=== PATIENT | male | born 1985 | race Caucasian/White ===

== ENCOUNTER 2022-08-24 07:52 | Emergency (ER) | payer BC ==
[2022-08-24] MEDS ORDERED: Ibuprofen 400 MG Tab PO ONE (08:31)
[2022-08-24] MEDS ORDERED: Acetaminophen 325 MG Tab PO ONE (08:31)
== END 2022-08-24 10:07 | disposition home or self-care (01) ==
LOC: MW.ED 07:52
DX: S93.401A Sprain of unspecified ligament of right ankle, initial encounter (principal); X50.1XXA Overexertion from prolonged static or awkward postures, initial encounter
CPT/HCPCS: 73610; 99283; A9270